=== PATIENT | female | born 1960 | race Caucasian/White ===

== ENCOUNTER 2016-08-03 14:13 | Emergency (ER) | payer MEDICAID, OTHER ==
[~2016-08-03] VITALS: Wt 89.5 kg
[~2016-08-03 14:13] MED LIST: CEPH-443 PO; IBUP400T22 PO; SILV20CR14 TOP; ULT50 PO
[2016-08-03] MEDS ORDERED: SODIUM CHLORIDE 0.9% 1L BAG IV* STA (16:24)
[2016-08-03] MEDS ORDERED: ACETAMINOPHEN 325 MG TAB PO ONE (16:30)
--- NOTE | 2016-08-03 16:50 | ERA ---
ER Documentation Chief Complaint Date/Time DATE: 08/03/16 TIME: 16:49 Chief Complaint BODYACHES, FEVER, HEADACHE, ONSET 3 DAYS HPI The patient is a 56-year-old female, presenting to the ER because of abdominal pain and low back pain intermittently for 1 week, 810, fever began last night, complains about painful urination. She denies chill, nasal congestion, cough, neck pain, chest pain, diaphoresis. She denies diarrhea, constipation. She does not smoke, does not drink Past medical history: Dyslipidemia Past surgical history: Cholecystectomy, 2 ROS All systems reviewed and are negative except as per history of present illness. Medications Home Meds Active Scripts Ibuprofen* (Motrin*) 600 Mg Tab, 600 MG PO Q6H Y for PAIN AND OR ELEVATED TEMP, #30 TAB Prov:JOSEPH BRUNO MD 08/03/16 Cephalexin* (Keflex*) 500 Mg Capsule, 500 MG PO QID for 10 Days, CAP Prov:JOSEPH BRUNO MD 08/03/16 Silver Sulfadiazine* (Silvadene*) 1% - 20 Gm Cream.gm., 1 APPLIC TOP DAILY, #1 TUB Prov:PRINCE LE NP 05/20/16 Cephalexin* (Keflex*) 500 Mg Capsule, 500 MG PO QID for 5 Days, CAP Prov:PRINCE LE NP 05/20/16 Ibuprofen* (Motrin*) 400 Mg Tab, 400 MG PO Q6H Y for PAIN AND OR ELEVATED TEMP, #30 TAB Prov:PRINCE LE NP 05/20/16 Tramadol HCl (Tramadol HCl) 50 Mg Tablet, 50 MG PO Q6 Y for SEVERE PAIN LEVEL 7- 10, #20 TAB Prov:PRINCE LE NP 05/20/16 Reported Medications [None] No Conflict Check 07/20/12 Allergies Allergies: Coded Allergies: No Known Allergy (Verified , 04/25/14) PMhx/Soc History of Surgery: Yes (GALL BLADDER, ) Anesthesia Reaction: No Hx Neurological Disorder: No Hx Respiratory Disorders: No Hx Cardiac Disorders: No Hx Psychiatric Problems: No Hx Miscellaneous Medical Probl: No Hx Alcohol Use: No Hx Substance Use: No Hx Tobacco Use: No Smoking Status: Never smoker Physical Exam Vitals Vital Signs Date Time Temp Pulse Resp B/P Pulse Ox O2 Delivery O2 Flow Rate FiO2 08/03/16 14:34 101.8 118 17 139/69 98 Physical Exam Const: No acute distress. Head: Atraumatic. Eyes: Normal Conjunctiva. ENT: Normal External Ears, Nose and Mouth. Neck: Full range of motion. No meningismus. Resp: Clear to auscultation bilaterally. Cardio: Regular but tachycardic Abd: Soft, non distended, normal bowel sounds, diffuse abdominal tenderness, more tender and upper abdomen, no rigidity, rebound tenderness. R CVA tenderness Skin: No petechiae or rashes. Back: No midline or flank tenderness. Ext: No cyanosis, or edema. Neur: Awake and alert. No focal deficit Psych: Normal Mood and Affect. Result Diagram: 08/03/16 1640 08/03/16 1640 Results 24 hrs Laboratory Tests Test 08/03/16 16:40 Activated Partial Thromboplast Time 25.4Sec Alanine Aminotransferase (ALT/SGPT) 29IU/L Albumin 4.3g/dl Albumin/Globulin Ratio 1.22 Alkaline Phosphatase 94IU/L Anion Gap 17 Aspartate Amino Transf (AST/SGOT) 21IU/L Basophils # 0.010^3/ul Basophils % 0.1% Blood Urea Nitrogen 8mg/dl Calcium Level 9.2mg/dl Carbon Dioxide Level 28mmol/L Chloride Level 102mmol/L Creatinine 0.53mg/dl Direct Bilirubin 0.00mg/dl Eosinophils # 0.010^3/ul Eosinophils % 0.0% Globulin 3.50g/dl Glucose Level 125mg/dl Hematocrit 41.9% Hemoglobin 14.4g/dl INR International Normalized Ratio 0.97 Indirect Bilirubin 0.5mg/dl Lactic Acid Level 1.1mmol/L Lymphocytes # 1.310^3/ul Lymphocytes % 12.3% Mean Corpuscular Hemoglobin 30.0pg Mean Corpuscular Hemoglobin Concent 34.4g/dl Mean Corpuscular Volume 87.3fl Mean Platelet Volume 8.1fl Monocytes # 1.210^3/ul Monocytes % 11.3% Neutrophils # 7.910^3/ul Neutrophils % 76.3% Nucleated Red Blood Cells # 0.010^3/ul Nucleated Red Blood Cells % 0.0/100WBC Platelet Count 28452^3/UL Potassium Level 3.7mmol/L Prothrombin Time 12.9Sec Prothrombin Time Ratio 1.0 Red Blood Count 4.8010^6/ul Red Cell Distribution Width 14.0% Sodium Level 143mmol/L Total Bilirubin 0.5mg/dl Total Protein 7.8g/dl Urine Bacteria MODERATE Urine Bilirubin NEGATIVE Urine Clarity SLIGHTLY CLOUDY Urine Color LT. YELLOW Urine Epithelial Cells MODERATE Urine Glucose NEGATIVE% Urine Hemoglobin 3+ Urine Ketones NEGATIVE Urine Leukocyte Esterase 3+ Urine Microscopic RBC 5-10/HPF Urine Microscopic WBC >50/HPF Urine Nitrite NEGATIVE Urine Specific [place] <=1.005 Urine Total Protein NEGATIVE Urine Urobilinogen 0.2 E.U./dL Urine pH 6.5 White Blood Count 10.310^3/ul Current Medications Medications (Trade) Dose Ordered Sig/Jonh Route PRN Reason Start Time Stop Time Status Last Admin Dose Admin Sodium Chloride (NS) 2,770 ml BOLUS OVER 2 HOURS STAT IV* 08/03/16 16:24 08/03/16 16:28 DC 08/03/16 17:15 Acetaminophen 650 mg 650 mg ONCE ONCE PO 08/03/16 16:30 08/03/16 16:33 DC 08/03/16 17:14 Ceftriaxone Sodium (Rocephin) 50 ml @ 100 mls/hr ONCE ONCE IVPB 08/03/16 17:30 08/03/16 17:59 DC 08/03/16 17:47 Procedures/[place] [id number] Radiology Main Line: [phone] DIAGNOSTIC IMAGING REPORT Patient: ANH HOPKINS : 1960 Age: 56 Sex: F MR #: [id number] DOS: 08/03/16 1624 Ordering MD: JOSEPH BRUNO MD Location: [facility] Room/Bed: PROCEDURE: XR Chest. CLINICAL INDICATION: And sepsis TECHNIQUE: Chest AP portable. COMPARISON: No comparison available. FINDINGS: The mediastinal structures are unremarkable. The heart is normal in size and configuration. The pulmonary vascularity is normal. The lung pond are unremarkable. No consolidation is identified. The pleural spaces are unremarkable. The axial skeleton is unremarkable. IMPRESSION: No active intrathoracic disease. RPTAT: HGDB .Juan M Ayala MD, MD Date Time Electronically viewed and signed by .Juan M Ayala MD, on 08/03/2016 17:30 .B/ CC: JOSEPH BRUNO MD [place] [id number] Radiology Main Line: [phone] DIAGNOSTIC IMAGING REPORT Patient: ANH HOPKINS : 1960 Age: 56 Sex: F MR #: [id number] DOS: 08/03/16 1624 Ordering MD: JOSEPH BRUNO MD Location: [facility] Room/Bed: PROCEDURE: CT Abdomen and Pelvis without contrast. CLINICAL INDICATION: Abdominal pain TECHNIQUE: CT of the abdomen and pelvis was performed on a multi-detector scanner without IV contrast. Coronal and sagittal images were reformatted from the axial data set. One or more of the following dose reduction techniques were used: automated exposure control, adjustment of the mA and/or kV according to patient size, use of iterative reconstruction technique. CTDI = 22.02 mGy. DLP = 1242.58 mGy-cm. COMPARISON: Ultrasound, 04/25/2014 FINDINGS: CT abdomen: There is mild bibasilar atelectasis. The heart size is normal, without pericardial effusion. Gallbladder is surgically absent. Liver, biliary tree, pancreas, spleen, adrenal glands and kidneys are unremarkable. No urolithiasis or obstructive uropathy is identified. The stomach is grossly unremarkable. The aorta is of normal caliber. There is no retroperitoneal lymphadenopathy. The lucy hepatis region is clear. CT pelvis: No bowel obstruction, free intraperitoneal air or abscess is identified. The appendix is well visualized and normal. There is no diverticulosis, diverticulitis or colitis. Urinary bladder, uterus and adnexa are grossly unremarkable. No pelvic mass, free fluid or lymphadenopathy is identified. The surrounding osseous structures are remarkable for degenerative spondylosis of the spine. No osteolytic or osteoblastic lesion is detected. IMPRESSION: 1. No urolithiasis or obstructive uropathy is seen. 2. Gallbladder is surgically absent. 3. No mass, lymphadenopathy, or focal acute inflammatory process is identified. RPTAT: TT .Alfonso Curry MD, Date Time Electronically viewed and signed by .Alfonso Curry MD, on 08/03/2016 17: 16 .R/ CC: JOSEPH BRUNO MD EKG: Read by emergency physician Rate/Rhythm: Sinus tachycardia 103 beats per min QRS, ST, T-waves: No ST elevation,nonspecific T abnormality Impression: Abnormal EKG MEDICAL MAKING DECISION: The patient is a 56-year-old female, presenting to the ER because of acute right pyelonephritis, acute dehydration. She was treated with normal saline 30 mL/kg IV, Tylenol 650 mg p.o., Rocephin 1 g IV with good response. The differential diagnoses considered include but are not limited to cholelithiasis, cholecystitis, cystitis, pancreatitis, hepatitis, gastritis, peptic ulcer disease, gastric ulcer, appendicitis, diverticulitis, cholangitis, choledocholithiasis, partial small bowel obstruction. Departure Diagnosis: Primary Impression: Pyelonephritis Condition: Good Comments She was discharged with Keflex, Motrin I discussed the findings with the patient. I advised the patient to follow-up with the primary physician in about 1-2 days, sooner if needed and return if any concern. The patient's blood pressure was elevated (>120/80) but appears stable without evidence of hypertension emergency or urgency. The patient was counseled about the risks of hypertension and urged to pursue outpatient monitoring and therapy within a week with their primary care physician. JOSEPH BRUNO MD Aug 03, 2016 16:50
[2016-08-03 17:12] LABS: BASOPHILS % 0.1 % (0.0-2.0); CONDITION 1; HEMATOCRIT 41.9 % (37.0-47.0); HEMOGLOBIN 14.4 g/dl (12.0-16.0); LYMPHOCYTES # 1.3 10^3/ul (0.8-2.9); LYMPHOCYTES % 12.3 % (15.0-51.0); MEAN CORPUSCULAR HGB CONC 34.4 g/dl (32.0-37.0); MEAN CORPUSCULAR VOLUME 87.3 fl (82.0-101.0); MEAN PLATELET VOLUME 8.1 fl (7.4-10.4); MONOCYTE # 1.2 10^3/ul (0.3-0.9); MONOCYTES % 11.3 % (0.0-11.0); NEUTROPHIL # 7.9 10^3/ul (1.6-7.5); NEUTROPHILS % 76.3 % (39.0-77.0); PLATELET COUNT 206 10^3/UL (140-440); UNCORRECTED WBC 10.3 10^3/ul (4.8-10.8); WHITE BLOOD COUNT 10.3 10^3/ul (4.8-10.8)
[2016-08-03 17:16] LABS: ADD UMIC YES; URINE BILIRUBIN (Dip) NEGATIVE (NEGATIVE); URINE BLOOD (Dip) 3+ (NEGATIVE); URINE COLOR LT. YELLOW (YELLOW); URINE GLUCOSE (Dip) NEGATIVE (NEGATIVE); URINE KETONES (Dip) NEGATIVE (NEGATIVE); URINE LEUKOCYTE ESTERASE (Dip) 3+ (NEGATIVE); URINE NITRITE (Dip) NEGATIVE (NEGATIVE); URINE TOTAL PROTEIN (Dip) NEGATIVE (NEGATIVE); URINE UROBILINOGEN (Dip) 0.2 E.U./dL (0.1-1.0)
--- NOTE | 2016-08-03 17:16 | RADRPT ---
PROCEDURE: CT Abdomen and Pelvis without contrast. CLINICAL INDICATION: Abdominal pain TECHNIQUE: CT of the abdomen and pelvis was performed on a multi-detector scanner without IV contr ast. Coronal and sagittal images were reformatted from the axial data set. One or more of the foll owing dose reduction techniques were used: automated exposure control, adjustment of the mA and/or kV according to patient size, use of iterative reconstruction technique. CTDI = 22.02 mGy. DLP = 12 42.58 mGy-cm. COMPARISON: Ultrasound, 04/25/2014 FINDINGS: CT abdomen: There is mild bibasilar atelectasis. The heart size is normal, without pericardial effusion. Gallb ladder is surgically absent. Liver, biliary tree, pancreas, spleen, adrenal glands and kidneys are unremarkable. No urolithiasis or obstructive uropathy is identified. The stomach is grossly unrema rkable. The aorta is of normal caliber. There is no retroperitoneal lymphadenopathy. The lucy hepatis reg ion is clear. CT pelvis: No bowel obstruction, free intraperitoneal air or abscess is identified. The appendix is well visua lized and normal. There is no diverticulosis, diverticulitis or colitis. Urinary bladder, uterus a nd adnexa are grossly unremarkable. No pelvic mass, free fluid or lymphadenopathy is identified. The surrounding osseous structures are remarkable for degenerative spondylosis of the spine. No ost eolytic or osteoblastic lesion is detected. IMPRESSION: 1. No urolithiasis or obstructive uropathy is seen. 2. Gallbladder is surgically absent. 3. No mass, lymphadenopathy, or focal acute inflammatory process is identified. RPTAT: TT .Alfonso Curry MD, Date Time Electronically viewed and signed by .Alfonso Curry MD, MD on 08/03/2016 17:16 .R/
[2016-08-03 17:20] LABS: INR 0.97; PARTIAL THROMBOPLASTIN TIME 25.4 Sec (25.0-35.0); PROTIME 12.9 Sec (12.2-14.2)
[2016-08-03 17:22] LABS: BACTERIA,URINE MODERATE
[2016-08-03 17:27] LABS: ALBUMIN 4.3 g/dl (3.3-4.9)
[2016-08-03 17:28] LABS: POTASSIUM 3.7 mmol/L (3.5-5.1)
[2016-08-03 17:30] LABS: ALBUMIN/GLOBULIN RATIO 1.22; BILIRUBIN,INDIRECT 0.5 mg/dl (0-1.1); BILIRUBIN,TOTAL 0.5 mg/dl (0.2-1.3); CREATININE 0.53 mg/dl (0.44-1.00); TOTAL PROTEIN 7.8 g/dl (6.1-8.1)
[2016-08-03] MEDS ORDERED: CEFTRIAXONE 1 GM/50 ML (PMX) 50 ML IVPB ONE (17:30)
[2016-08-03 17:31] LABS: CALCIUM 9.2 mg/dl (8.4-10.2)
--- NOTE | 2016-08-03 17:31 | RADRPT ---
PROCEDURE: XR Chest. CLINICAL INDICATION: And sepsis TECHNIQUE: Chest AP portable. COMPARISON: No comparison available. FINDINGS: The mediastinal structures are unremarkable. The heart is normal in size and configuration. The pu lmonary vascularity is normal. The lung pond are unremarkable. No consolidation is identified. The pleural spaces are unremarkable. The axial skeleton is unremarkable. IMPRESSION: No active intrathoracic disease. RPTAT: HGDB .Juan M Ayala MD, MD Date Time Electronically viewed and signed by .Juan M Ayala MD, on 08/03/2016 17:30 .B/
[2016-08-03] MEDS ORDERED: IBUP-1542 PO (17:50)
[2016-08-03] MEDS ORDERED: CEPH-443 PO (17:50)
[2016-08-03 18:36] VITALS: BP 109/59; PULSE 91; RESP 18; TEMP 98
== END 2016-08-03 18:35 | disposition home or self-care (01) ==
LOC: FTE 14:13
DX: N10 Acute pyelonephritis (principal); R10.84 Generalized abdominal pain
CPT/HCPCS: 36415; 71010; 74176; 80053; 81001; 83605; 85025; 85610; 85730; 87086; 93005; 96374; J0696; J7030; Z7502; Z7610; 81003